=== PATIENT | male | born 1990 | race Caucasian/White ===

== ENCOUNTER 2017-07-14 08:18 | Emergency (ER) | payer OTHER ==
[~2017-07-14] VITALS: Ht 180.3 cm; Wt 103.6 kg
[2017-07-14 08:20] VITALS: TEMP 36.9; Ht 180.3 cm; Wt 103.6 kg
--- NOTE | 2017-07-14 08:49 | DIAGNOSTIC IMAGING REPORT ---
R FOOT MIN 3 VIEWS ROUTINE HISTORY: 26 years-old Male R/O fx right foot, trauma acute right foot pain with history of trauma COMPARISON: None available TECHNIQUE: 3 views of the right foot FINDINGS: Small Achilles enthesophyte about the calcaneus. Accessory ossicle noted adjacent to the medial aspect of the first interphalangeal joint. Minimal dorsal spurring about the midfoot. No acute fracture or dislocation. No opaque foreign body. Mild forefoot soft tissue swelling. IMPRESSION: Mild forefoot soft tissue swelling without fracture. The above report was generated using voice recognition software. It may contain grammatical, syntax or spelling errors. Electronically signed by: Jossue Carbajal M.D. 07/14/2017 8:47 AM Dictated Date/Time: 07/14/2017 8:45 AM
[2017-07-14 09:17] VITALS: BP 125/68; PULSE 51; O2SAT 99
--- NOTE | 2017-07-14 17:09 | EMERGENCY ROOM VISIT NOTE ---
ED Visit Note First contact with patient: 08:29 Chief Complaint: Right foot pain. History of Present Illness: Mr. Vogel is a 26-year-old white male who ambulates into the ED complaining of right foot pain. Patient reports he was at work approximately 1 hour ago when a flip can weighing approximately 1000 pounds landed on his right foot. Since that time he has been having pain over the great toe and second toe of the right foot. He describes this as a throbbing discomfort. He rates his discomfort 6/10. The pain is nonradiating. The pain worsens with palpation of the first metatarsal, the MTP joint and the rest of the great toe and minimal pain over the second MTP joint. His pain worsens with ambulation and flexion and extension of the first MCP and interphalangeal joint. He has not identified any alleviating factors related to the pain. He has not taken any medications for pain prior to arrival at the hospital. He denies any associated ankle pain, other foot pain, other toe pain, foot weakness/numbness/ tingling. Review of Systems: As noted above in history of present illness. Past Medical History: (1) H/O Right wrist fracture (2) Heroin addiction (3) Hypertension Current Medications: Patient denies Allergies to Medications: Patient denies. Social History: Patient is currently employed; he feels safe in his home environment; he denies tobacco and alcohol use. Physical Examination: Vital Signs: Date Time Temp Pulse Resp B/P (MAP) Pulse Ox O2 Delivery O2 Flow Rate FiO2 07/14/17 09:17 51 16 125/68 99 Room Air 07/14/17 08:20 36.9 54 18 164/91 98 Room Air GENERAL: 26-year-old male in mild distress due to pain, nontoxic-appearing, afebrile and hemodynamically stable. NEUROLOGICAL: Awake, alert and oriented to person, place and time. Answering questions appropriately and following commands. SKIN: Warm, dry and pink. Right Foot: Early contusion over the dorsal aspect of the foot primarily over the great toe. No open wounds. RIGHT FOOT: Shows no gross bony deformity. Ecchymosis noted over the great toe as previously noted. There is moderate tenderness starting over the distal first metatarsal and extending into the first MTP joint and throughout the great toe. I do not appreciate any bony deformity or crepitus. Decreased range of motion at the MTP joint and interphalangeal joint due to pain and swelling. Capillary refill was brisk. He was intact to light sensation. No subungual hematoma. There is mild tenderness over the second distal metatarsal and MTP joint but none in the second toe. There is no bruising. Capillary refill was brisk. He is intact to light sensations. No subungual hematoma. ED Course: Patient is assessed as noted above. Patient's medication list was reviewed. Patient was offered pain medication and refused. Right Foot X-Rays: Were read by myself and the radiologist showing no acute fractures or dislocations. Patient was placed in a postop shoe; he was offered nonweightbearing crutches and refused. Patient was educated about today's findings and instructed on his treatment plan ; he verbalizes understanding and agreement with this plan. Clinical Impression: Right foot contusion. Work-related injury. Disposition: Patient discharged home in stable condition; prior to departure he was reassessed and subjectively reported he was feeling better and rated his discomfort 3/10. Plan: Comfort measures were discussed with the patient including alternating ibuprofen and acetaminophen every 3 hours for persistent pain. Ice, elevation and use of postop shoe. Patient was encouraged to follow-up with Workmen's Compensation if no better in 3-4 days. Patient was encouraged return the ED for worsening pain, worsening swelling, toe /foot weakness/numbness/tingling or any new/concerning symptoms.
== END 2017-07-14 09:20 | disposition home or self-care (01) ==
LOC: C.EDB 08:20 → C.EDA 09:20
DX: S90.31XA Contusion of right foot, initial encounter (principal); W22.8XXA Striking against or struck by other objects, initial encounter; Y92.89 Other specified places as the place of occurrence of the external cause; Y99.0 Civilian activity done for income or pay

== ENCOUNTER 2021-06-27 16:24 | Observation (INO) ==
[2021-06-27 16:51] LABS: Basophils # (auto) 0.02 K/uL (0-0.2); Basophils % (auto) 0.2 %; Eosinophils # (auto) 0.29 K/uL (0-0.5); Eosinophils % (auto) 2.6 %; Hematocrit (blood only) 42.1 % (42-52); Hemoglobin 14.6 g/dL (14.0-18.0); Immature Granulocytes # (auto) 0.01 K/uL (0.00-0.02); Immature Granulocytes % (auto) 0.1 %; Lymphocytes # (auto) 2.26 K/uL (1.2-3.4); Lymphocytes % (auto) 20.2 %; Mean Corpuscular Hemoglobin 29.9 pg (25-34); Mean Corpuscular Hgb Conc 34.7 g/dL (32-36); Mean Corpuscular Volume 86.3 fL (80-100); Mean Platelet Volume 10.5 fL (7.4-10.4); Monocytes % (auto) 7.1 %; Neutrophils # (auto) 7.82 K/uL (1.4-6.5); Neutrophils % (auto) 69.8 %; Platelet Count 301 K/uL (130-400); RDW Coefficient of Variation 12.8 % (11.5-14.5); RDW Standard Deviation 40.8 fL (36.4-46.3); Red Blood Count 4.88 M/uL (4.7-6.1)
[2021-06-27 16:53] LABS: Appearance Urine Clear (Clear); Bilirubin Urine Negative (Negative); Blood Urine Negative (Negative); Color Urine Yellow; Glucose Urine UA Negative (Negative); Ketones Urine Negative (Negative); Leukocyte Esterase Urine Negative (Negative); Nitrite Urine Negative (Negative); Protein Urine Negative (Negative); Specific Gravity Urine > 1.045 (1.000-1.030); Urobilinogen Urine Negative (Negative); pH Urine 6.5 (4.5-7.5)
[2021-06-27 17:10] LABS: Albumin Globulin Ratio 1.6 (0.9-2); Albumin Level 5.1 gm/dl (3.4-5.0); BUN Creatinine Ratio 15.5 (10-20); Bilirubin,Total 0.4 mg/dl (0.2-1.0); Creatinine Clr Calc Pharmacy 159.2 ml/min; Est GFR (African American) 137.1 ml/min; Est GFR (Non-African American) 118.3 ml/min; Globulin 3.1 gm/dl (2.5-4.0); Potassium 3.8 mmol/L (3.5-5.1); Total Protein 8.2 gm/dl (6.0-8.3)
--- NOTE | 2021-06-27 19:07 | History & Physical Report ---
Date of Service June 27, 2021 Assessment & Plan (1) Acute appendicitis with localized peritonitis: Plan: 22-year-old gentleman presents with acute appendicitis. He has an elevated white count and right lower quadrant pain. CT scan demonstrate acute appendicitis. I discussed with him the risks and benefits of a laparoscopic, possible open appendectomy. All his questions were answered, he is agreeable to proceed. We will take him to the operating room at the earliest convenience. History of Present Illness Primary Care Provider: Bryon Llamas MD 30-year-old gentleman presents with right lower quadrant pain starting this morning. He states that he had a fever yesterday. He denies nausea and vomiting. The pain has increased throughout the day. Is in his right lower quadrant. He ate lunch. He denies chest pain, shortness of breath. He denies chills or sweats. He denies change in bowel habits. Allergies Allergy/AdvReac Type Severity Reaction Status Date / Time bee venom protein (honey bee) Allergy Severe Anaphylaxis Verified 03/20/19 19:39 Home Medications Medication Instructions Recorded Confirmed Type buprenorphine 8 mg-naloxone 2 mg 1 tab SUBLINGUAL BID 11/29/18 03/20/19 History sublingual tablet epinephrine 0.3 mg/0.3 mL 0.3 mg IM DIRECTED PRN 11/29/18 03/20/19 History injection, auto-injector lisinopril 20 1 tab PO DAILY 11/29/18 03/20/19 History mg-hydrochlorothiazide 12.5 mg tablet bupropion HCl 100 mg tablet 100 mg PO BID 03/20/19 03/20/19 History docusate sodium 100 mg capsule 100 mg PO DAILY 03/20/19 03/20/19 History (Stool Softener) venlafaxine 37.5 mg 37.5 mg PO DAILY 03/20/19 03/20/19 History capsule,extended release 24 hr Past Med/Surg History Medical History (Updated 06/27/21 @ 19:08 by Gianni Thibodeaux MD) Heroin addiction Heroin withdrawal Hypertension Intractable nausea and vomiting Nasal fracture Nasal laceration Surgical History S/P wisdom tooth extraction Family History Mother Hypertension Father Hypertension Denies family history of Ovarian cancer Prostate cancer Myocardial infarction Breast cancer Colorectal cancer Social History Smoking Status: Current every day smoker Age Started Using Tobacco: 15; Age Quit Using Tobacco: 25; Hx Alcohol Use: Yes Hx Substance Use: No Preferred Language: Singaporean Visual Impairment: No Limitations Hearing Ability: Normal marital status: Single Current Living Situation: Parent Current Living Situation Comment: WITH DAD current occupational status: employed current occupation: LABOROR Feels Safe at Home: Yes Childhood Exposure to Second-Hand Smoke: Yes Dental Care, Regularly: No Physical Activity Frequency: Does not Exercise Seatbelt Use: always Sunscreen Use: Yes Review of Systems Review of Systems: All systems reviewed & are unremarkable except as noted in HPI & below Physical Exam Constitutional: WD/WN, vitals as above Neck: trachea midline, no thyromegaly Respiratory: normal respiratory effort; no respiratory distress and no labored breathing Cardiovascular: RRR, no murmur, no edema Gastrointestinal (Abdomen): Inspection/Auscultation: abdomen normal to inspection; abdomen not distended Percussion/Palpation: + abdomen tender (RLQ ) and abdomen soft; no guarding and abdomen not rigid positive Rovsig's sign Musculoskeletal: Extremities: no cyanosis and no clubbing Skin: no rashes, warm and dry Psychiatric: A+Ox3, euthymic affect Results & Data Results & Data ([facility]) Vital Signs (Past 12 Hours) Vital Signs Temp Pulse Pulse Resp BP Pulse Ox 06/27/21 18:26 57 L 18 97 06/27/21 18:10 55 L 16 99 06/27/21 18:00 66 15 132/69 97 06/27/21 17:50 60 18 98 06/27/21 17:40 70 15 98 06/27/21 17:36 69 19 99 06/27/21 16:26 36.1 C L 62 16 142/82 H 100 Laboratory Results 06/27/21 06/27/21 06/27/21 Range/Units 17:25 16:35 16:35 WBC (4.8-10.8) K/uL RBC (4.7-6.1) M/uL Hgb (14.0-18.0) g/dL Hct (42-52) % MCV (80-100) fL MCH (25-34) pg MCHC (32-36) g/dL RDW Std Deviation (36.4-46.3) fL RDW Coeff of Kim (11.5-14.5) % Plt Count (130-400) K/uL MPV (7.4-10.4) fL Immature Gran % (Auto) % Neut % (Auto) % Lymph % (Auto) % Terrell % (Auto) % Eos % (Auto) % Baso % (Auto) % Neut # (Auto) (1.4-6.5) K/uL Lymph # (Auto) (1.2-3.4) K/uL Terrell # (Auto) (0.11-0.59) K/uL Eos # (Auto) (0-0.5) K/uL Baso # (Auto) (0-0.2) K/uL Immature Gran # (Auto) (0.00-0.02) K/uL Sodium 136 (136-145) mmol/L Potassium 3.8 (3.5-5.1) mmol/L Chloride 97 L (98-107) mmol/L Carbon Dioxide 32 (21-32) mmol/L Anion Gap 7 (3-11) BUN 13 (6-23) mg/dl Creatinine 0.84 (0.6-1.4) mg/dl Est Cr Clr Drug Dosing 159.2 ml/min Est GFR ( Amer) 137.1 ml/min Est GFR (Non-Af Amer) 118.3 ml/min BUN/Creatinine Ratio 15.5 (10-20) Glucose 83 (70-99(Fasting)) mg/dl Calcium 10.0 (8.5-10.1) mg/dl Total Bilirubin 0.4 (0.2-1.0) mg/dl AST 19 (13-39) U/L ALT 20 (7-52) U/L Alkaline Phosphatase 64 (34-104) U/L Total Protein 8.2 (6.0-8.3) gm/dl Albumin 5.1 H (3.4-5.0) gm/dl Globulin 3.1 (2.5-4.0) gm/dl Albumin/Globulin Ratio 1.6 (0.9-2) Lipase 32 (11-82) U/L Urine Color Yellow Urine Appearance Clear (Clear) Urine pH 6.5 (4.5-7.5) Ur Specific [place] > 1.045 H (1.000-1.030) Urine Protein Negative (Negative) Urine Glucose (UA) Negative (Negative) Urine Ketones Negative (Negative) Urine Blood Negative (Negative) Urine Nitrite Negative (Negative) Urine Bilirubin Negative (Negative) Urine Urobilinogen Negative (Negative) Ur Leukocyte Esterase Negative (Negative) SARS-CoV-2, RNA, NAAT NEGATIVE (NEGATIVE) 06/27/21 Range/Units 16:35 WBC 11.20 H (4.8-10.8) K/uL RBC 4.88 (4.7-6.1) M/uL Hgb 14.6 (14.0-18.0) g/dL Hct 42.1 (42-52) % MCV 86.3 (80-100) fL MCH 29.9 (25-34) pg MCHC 34.7 (32-36) g/dL RDW Std Deviation 40.8 (36.4-46.3) fL RDW Coeff of Kim 12.8 (11.5-14.5) % Plt Count 301 (130-400) K/uL MPV 10.5 H (7.4-10.4) fL Immature Gran % (Auto) 0.1 % Neut % (Auto) 69.8 % Lymph % (Auto) 20.2 % Terrell % (Auto) 7.1 % Eos % (Auto) 2.6 % Baso % (Auto) 0.2 % Neut # (Auto) 7.82 H (1.4-6.5) K/uL Lymph # (Auto) 2.26 (1.2-3.4) K/uL Terrell # (Auto) 0.80 H (0.11-0.59) K/uL Eos # (Auto) 0.29 (0-0.5) K/uL Baso # (Auto) 0.02 (0-0.2) K/uL Immature Gran # (Auto) 0.01 (0.00-0.02) K/uL Sodium (136-145) mmol/L Potassium (3.5-5.1) mmol/L Chloride (98-107) mmol/L Carbon Dioxide (21-32) mmol/L Anion Gap (3-11) BUN (6-23) mg/dl Creatinine (0.6-1.4) mg/dl Est Cr Clr Drug Dosing ml/min Est GFR ( Amer) ml/min Est GFR (Non-Af Amer) ml/min BUN/Creatinine Ratio (10-20) Glucose (70-99(Fasting)) mg/dl Calcium (8.5-10.1) mg/dl Total Bilirubin (0.2-1.0) mg/dl AST (13-39) U/L ALT (7-52) U/L Alkaline Phosphatase (34-104) U/L Total Protein (6.0-8.3) gm/dl Albumin (3.4-5.0) gm/dl Globulin (2.5-4.0) gm/dl Albumin/Globulin Ratio (0.9-2) Lipase (11-82) U/L Urine Color Urine Appearance (Clear) Urine pH (4.5-7.5) Ur Specific [place] (1.000-1.030) Urine Protein (Negative) Urine Glucose (UA) (Negative) Urine Ketones (Negative) Urine Blood (Negative) Urine Nitrite (Negative) Urine Bilirubin (Negative) Urine Urobilinogen (Negative) Ur Leukocyte Esterase (Negative) SARS-CoV-2, RNA, NAAT (NEGATIVE) Diagnostic Findings CT abd pelvis oral and IV con CLINICAL HISTORY: ABD PAIN RLQ COMPARISON STUDY: 03/20/2019 CT DOSE: 488.82 mGy.cm TECHNIQUE: Standard CT of the Abdomen and Pelvis was performed with IV contrast. A dose lowering technique was utilized adhering to the principles of ALARA. Contrast Volume: Optiray 320, 94 ml. The patient received oral contrast. FINDINGS: Lung base: The lung bases are clear. Abdominal cavity: There is no evidence for abdominal mass, adenopathy or ascites. Liver: There is homogeneous attenuation of the liver parenchyma. There is no evidence for enhancing mass lesion. Spleen: There is homogeneous attenuation of the splenic parenchyma. There is no enhancing mass lesion. Pancreas: There is homogeneous attenuation of the pancreatic parenchyma. There is no evidence for mass lesion or peripancreatic fluid collection. Gall Bladder: The gallbladder is well distended with no evidence for intraluminal calculi, wall thickening or pericholecystic edema. Adrenal glands: The adrenal glands are normal in size and attenuation. There is no evidence for enhancing mass lesion. Kidneys: There is homogeneous attenuation of the renal parenchyma bilaterally. There is no evidence for renal calculus or hydronephrosis. There is no evidence for enhancing mass. Bowel: Compared to the previous examination, there is now mild edematous changes present involving the appendix with very mild periappendiceal inflammatory changes present. There is no evidence for perforation or abscess. The findings are most characteristic of early acute appendicitis. The remaining bowel loops are normally placed within the abdomen and pelvis without evidence for dilatation or obstruction. There is no evidence for mass lesion. There is no evidence for free air. Bladder: The bladder is within normal limits with no evidence for focal mass, calculus or diverticulum. : There is no evidence for pelvic mass or adenopathy. There is no evidence for pelvic ascites. Vasculature: There is no evidence for aneurysmal dilatation of the abdominal aorta. Osseous structures: There is no acute osseous pathology. IMPRESSION: 1. CT findings characteristic of early acute appendicitis without evidence for perforation or abscess. 2. The patient did not wait to get the results of this study.
[2021-06-27] MEDS ORDERED: PIPERACILL/TAZOBAC CONSULT ACTIVE PRN (19:09)
[2021-06-27] MEDS ORDERED: PIPERACILLIN/TAZOBACTAM 3.375 GM in DEXTROSE 5% 100 ML/100 ML BAG IV STA (19:20)
[2021-06-27] MEDS ORDERED: PHENYLEPHRINE 100MCG/ML 5ML SYR IV PRN (19:54)
[2021-06-27] MEDS ORDERED: ePHEDrine sulfate 50 MG/ML AMP IV PRN (19:54)
[2021-06-27] MEDS ORDERED: MEPERIDINE HCL 25 MG/ML CARP/VIAL IV PRN (19:54)
[2021-06-27] MEDS ORDERED: ATROPINE SULFATE 0.1 MG/ML 10ML SYR IV PRN (19:54)
[2021-06-27] MEDS ORDERED: HYDROmorphone INJ 1 MG/ML SYRINGE IV PRN (19:54)
[2021-06-27] MEDS ORDERED: ONDANSETRON INJ 2 MG/ML 2 ML VIAL IV PRN ×2 (19:54→23:45)
[2021-06-27] MEDS ORDERED: LABETALOL HCL IV 5 MG/ML 20ML IV PRN (19:54)
--- NOTE | 2021-06-27 19:56 | Anesthesiology Consultation ---
Date of Service June 27, 2021 Assessment & Plan (1) Encounter for pre-operative examination: Chart Review Chart Review: Acceptable Risk for Surgery and Patient NOT seen in Pre Admission Testing Consults Requested none History Surgery Operation Date: 06/27/21 23:00 Proposed Procedures p Laparoscopic Appendectomy - Gianni Thibodeaux MD Height/Weight Height: 6 ft 1 in Weight: 97 kg Allergies Allergy/AdvReac Type Severity Reaction Status Date / Time bee venom protein (honey bee) Allergy Severe Anaphylaxis Verified 03/20/19 19:39 Medications Home Medications Medication Instructions Recorded Confirmed Last Taken buprenorphine 8 mg-naloxone 2 mg 1 tab SUBLINGUAL BID 11/29/18 03/20/19 Unknown sublingual tablet epinephrine 0.3 mg/0.3 mL 0.3 mg IM DIRECTED PRN 11/29/18 03/20/19 Unknown injection, auto-injector lisinopril 20 1 tab PO DAILY 11/29/18 03/20/19 Unknown mg-hydrochlorothiazide 12.5 mg tablet bupropion HCl 100 mg tablet 100 mg PO BID 03/20/19 03/20/19 Unknown docusate sodium 100 mg capsule 100 mg PO DAILY 03/20/19 03/20/19 Unknown (Stool Softener) venlafaxine 37.5 mg 37.5 mg PO DAILY 03/20/19 03/20/19 Unknown capsule,extended release 24 hr Past Medical History Medical History (Updated 06/27/21 @ 19:56 by Wilber Hilton MD) Heroin addiction Heroin withdrawal Hypertension Intractable nausea and vomiting Nasal fracture Nasal laceration Past Family History Family History Mother Hypertension Father Hypertension Denies family history of Ovarian cancer Prostate cancer Myocardial infarction Breast cancer Colorectal cancer Past Surgical History Surgical History S/P wisdom tooth extraction Social History Smoking Status: Current every day smoker tobacco type: cigarettes Hx Alcohol Use: Yes Hx Substance Use: No Physical Exam Vital Signs Last Vital Signs Temp 36.1 C L 06/27/21 16:26 Pulse 57 L 06/27/21 18:26 Resp 18 06/27/21 18:26 BP 132/69 06/27/21 18:00 Pulse Ox 97 06/27/21 18:26 Testing Laboratory Results 06/27/21 16:35 06/27/21 16:35 Urine Color Yellow 06/27/21 16:35 Urine Appearance Clear (Clear) 06/27/21 16:35 Urine pH 6.5 (4.5-7.5) 06/27/21 16:35 Ur Specific [place] > 1.045 (1.000-1.030) H 06/27/21 16:35 Urine Protein Negative (Negative) 06/27/21 16:35 Urine Glucose (UA) Negative (Negative) 06/27/21 16:35 Urine Ketones Negative (Negative) 06/27/21 16:35 Urine Nitrite Negative (Negative) 06/27/21 16:35 Ur Leukocyte Esterase Negative (Negative) 06/27/21 16:[address] abd pelvis oral and IV con CLINICAL HISTORY: ABD PAIN RLQ COMPARISON STUDY: 03/20/2019 CT DOSE: 488.82 mGy.cm TECHNIQUE: Standard CT of the Abdomen and Pelvis was performed with IV contrast. A dose lowering technique was utilized adhering to the principles of ALARA. Contrast Volume: Optiray 320, 94 ml. The patient received oral contrast. FINDINGS: Lung base: The lung bases are clear. Abdominal cavity: There is no evidence for abdominal mass, adenopathy or ascites. Liver: There is homogeneous attenuation of the liver parenchyma. There is no evidence for enhancing mass lesion. Spleen: There is homogeneous attenuation of the splenic parenchyma. There is no enhancing mass lesion. Pancreas: There is homogeneous attenuation of the pancreatic parenchyma. There is no evidence for mass lesion or peripancreatic fluid collection. Gall Bladder: The gallbladder is well distended with no evidence for intraluminal calculi, wall thickening or pericholecystic edema. Adrenal glands: The adrenal glands are normal in size and attenuation. There is no evidence for enhancing mass lesion. Kidneys: There is homogeneous attenuation of the renal parenchyma bilaterally. There is no evidence for renal calculus or hydronephrosis. There is no evidence for enhancing mass. Bowel: Compared to the previous examination, there is now mild edematous changes present involving the appendix with very mild periappendiceal inflammatory changes present. There is no evidence for perforation or abscess. The findings are most characteristic of early acute appendicitis. The remaining bowel loops are normally placed within the abdomen and pelvis without evidence for dilatation or obstruction. There is no evidence for mass lesion. There is no evidence for free air. Bladder: The bladder is within normal limits with no evidence for focal mass, calculus or diverticulum. : There is no evidence for pelvic mass or adenopathy. There is no evidence for pelvic ascites. Vasculature: There is no evidence for aneurysmal dilatation of the abdominal aorta. Osseous structures: There is no acute osseous pathology. IMPRESSION: 1. CT findings characteristic of early acute appendicitis without evidence for perforation or abscess. 2. The patient did not wait to get the results of this study. The referring clinician will be called with results of this study. ACT 112: Negative or not required by law. Electronically signed by: Leonel Oliveira M.D. 06/27/2021 2:52 PM Dictated:06/27/21 1435
[2021-06-27] MEDS: LACTATED RINGER'S 1,000 ML IV SCH (20:20)
[2021-06-27] MEDS ORDERED: BUPIVACAINE/EPINEPHRINE 0.25% 1:200,000 30 ML VIAL ONE (21:15)
[2021-06-27] MEDS ORDERED: MIDAZOLAM HCL 1 MG/ML 2ML VIAL ONE (21:42)
[2021-06-27] MEDS ORDERED: fentaNYL citrate 100 MCG/2 ML VIAL ONE (21:56)
[2021-06-27] MEDS ORDERED: NEOSTIGMINE METHYLSULFATE 1 MG/ML 10ML VIAL ONE (22:21)
[2021-06-27] MEDS ORDERED: ROCURONIUM BROMIDE 10 MG/ML 5 ML VIAL IV ONE (22:21)
[2021-06-27] MEDS ORDERED: DEXAMETHASONE SOD INJ 4 MG/ML VIAL ONE (22:21)
[2021-06-27] MEDS ORDERED: GLYCOPYRROLATE 0.2 MG/ML VIAL ONE (22:21)
[2021-06-27] MEDS ORDERED: ONDANSETRON INJ 2 MG/ML 2 ML VIAL ONE (22:21)
[2021-06-27] MEDS ORDERED: LIDOCAINE 2% 2 ML VIAL/AMP(20MG/ML) INFIL ONE (22:23)
[2021-06-27] MEDS ORDERED: PROPOFOL IV EMULSION 10 MG/ML 20 ML VIAL IV ONE (22:23)
--- NOTE | 2021-06-27 22:30 | Anesthesiology Progress Note ---
Date of Service June 27, 2021 Anesthesia Post Procedure Vital Signs Vital Signs: Temp Pulse Pulse Resp BP BP Pulse Ox 06/27/21 20:00 57 L 17 126/51 L 94 06/27/21 18:26 57 L 18 97 06/27/21 18:10 55 L 16 99 06/27/21 18:00 66 15 132/69 97 06/27/21 17:50 60 18 98 06/27/21 17:40 70 15 98 06/27/21 17:36 69 19 99 06/27/21 16:26 36.1 C L 62 16 142/82 H 100 Pain Intensity Abdomen: Pain Intensity: 2 Transfer of Care Handoff Completed per policy Notes Mental Status: alert / awake / arousable Patient Amnestic to Procedure: Yes Nausea / Vomiting: adequately controlled Pain: adequately controlled Airway Patency, RR, SpO2: stable & adequate BP & HR: stable & adequate Hydration State: stable & adequate Anesthetic Complications: no major complications apparent and Pt Satisfied with anesthetic care Notes: The patient has a history of esophageal cancer with a noted hiatal hernia on imaging. The patient had a RSI. He was easily intubated but was noted to have phlegm and then multiple chunks of food in a "pouch" near his esophagus. Multiple chunks of food were removed with forceps. The procedure continued uneventfully. At the end of the surgery the patient was again noted to have multiple chunks of food that were suctioned. The patient was awake and breathing spontaneously prior to extubation. He did not appear to aspirate during the procedure. He has been awake and stable in PACU with SpO2 in the mid to high 90s. His lung sound are similar to his baseline upon ausculation.
[2021-06-27] MEDS ORDERED: KETOROLAC 30 MG/ML VIAL ONE ×2 (22:35→22:37)
--- NOTE | 2021-06-27 22:41 | Post Operative Brief Note ---
Immediate Post Op Note v1 Date of Surgery June 27, 2021 Pre & Post Diagnosis Operation Date: 06/27/21 23:00 Pre-Op Diagnosis: Acute appendicitis with localized peritonitis Post-Op Diagnosis: Acute appendicitis with localized peritonitis I identified the patient and participated in the time-out.: Yes Procedure Operation Date: 06/27/21 23:00 Actual Procedures p Laparoscopic Appendectomy - Gianni Thibodeaux MD Surgeon Gianni Thibodeaux MD Math Instructor none Estimated Blood Loss 5 Findings Consistent with Post-Op Diagnosis acute appendicitis
--- NOTE | 2021-06-27 22:42 | Operative Report ---
Post Operative Report Pre & Post Diagnosis Operation Date: 06/27/21 23:00 Pre-Op Diagnosis: Acute appendicitis with localized peritonitis Post-Op Diagnosis: Acute appendicitis with localized peritonitis I identified the patient and participated in the time-out.: Yes Procedure Operation Date: 06/27/21 23:00 Actual Procedures p Laparoscopic Appendectomy - Gianni Thibodeaux MD Surgeon Gianni Thibodeaux MD Professor Of Business Administration none Estimated Blood Loss 5 Findings Consistent with Post-Op Diagnosis Acute appendicitis Specimens Appendix Anesthesia Type General Complications No immediate complications Description of Procedure The patient was taken to the operating room, and placed supine on the operating table. A timeout was performed, perioperative antibiotics were administered, SCD boots were placed. After adequate anesthesia and analgesia was obtained, the abdomen was prepped and draped in the normal sterile fashion. A 1 cm incision was made in the supraumbilical region and carried down to the level of the fascia. A trach hook was used to grasp the fascia and elevated and a varies needle was used to enter the abdominal cavity. The abdomen was insufflated to a pressure of 15 mmHg, and a 5 mm trocar was placed in this location. A 5 mm 30 degree laparoscope was placed into the abdominal cavity, and the abdomen was surveyed. The patient was placed in Trendelenburg and slightly to the left. One 5 mm trocar was placed in the right upper quadrant, and one 12 mm trocar was placed in the left lower quadrant under direct visualization. The right colon was identified and traced down to the cecum. The appendix was identified and elevated anteriorly and medially. A window was created at the base of the appendix with a [place] dissector. The Endo CIERRA stapler was used to transect the appendix at its base through noninflam ed tissue, and subsequently the mesoappendix. The appendix was placed in an Endo Catch bag, and removed via the left lower quadrant port site. Attention was turned to hemostasis, which was excellent. The abdomen was copiously irrigated and suctioned free, and again hemostasis was found to be excellent. All trochars removed under direct visualization. The abdomen was desufflated. The fascia in the 12 mm port site was closed with a 0 Vicryl suture. The skin was closed with a running 4-0 Monocryl subcuticular stitch. Dermabond was applied. The patient tolerated the procedure without complication, and was transferred in stable condition to the PACU. All instrument, needle, and sponge counts were correct at the end of the case. I attest to the content of the Intraoperative Record and any orders documented therein. Any exceptions are noted below.
[2021-06-27] MEDS: fentaNYL citrate 100 MCG/2 ML VIAL IV PRN ×3 (23:10→23:20)
--- NOTE | 2021-06-27 23:10 | Emergency Department Note ---
History of Present Illness General Chief complaint: Abdominal Pain Stated complaint: APPENDIX PROBLEMS, REF BY DOC Time Seen by Provider: 06/27/21 16:38 Source: patient Mode of arrival: ambulatory Limitations: no limitations History of Present Illness Maximum Pain Intensity: 5 This patient is a 30-year-old male who presents to the emergency department for evaluation of abdominal pain and appendicitis. He states that he has had some intermittent abdominal pain for the past few days which has been constant since this morning. Pain is in the right lower abdomen. He denies associated nausea/vomiting, anorexia or fevers. He rates his pain a 5/10. He saw his primary care provider as an outpatient and had a CT scan which showed appendicitis. He was sent here for further care. Home Medications Medication Instructions Recorded Confirmed Type buprenorphine 8 mg-naloxone 2 mg 1 tab SUBLINGUAL BID 11/29/18 06/27/21 History sublingual tablet lisinopril 20 mg tablet 20 mg PO DAILY 06/27/21 06/27/21 History Allergies Allergy/AdvReac Type Severity Reaction Status Date / Time bee venom protein (honey bee) Allergy Severe Anaphylaxis Verified 06/27/21 20:29 Past Med/Surg History Medical History Chews tobacco regularly Heroin addiction Heroin withdrawal Hypertension Nasal fracture Surgical History S/P wisdom tooth extraction Family History Mother Hypertension Father Hypertension Denies family history of Ovarian cancer Prostate cancer Myocardial infarction Breast cancer Colorectal cancer Social History Smoking Status: Current every day smoker Age Started Using Tobacco: 15; Age Quit Using Tobacco: 25; Second Hand Exposure: Yes; Do You Dip or Chew Tobacco: Yes; Tobacco Cessation Education Requested by Patient: Yes Hx Alcohol Use: Yes Alcohol type: beer Hx Substance Use: Yes Last Used Substance: Unknown Last Used Substance Other:: 7-8 years Preferred Language: French Communication Ability: Effective Visual Impairment: No Limitations Hearing Ability: Normal Booth Supervisor Required: No Beliefs That Will Affect Care: None marital status: Single Current Living Situation: Family Current Living Situation Comment: WITH DAD current occupational status: employed current occupation: LABOROR Other Information That Helps Us Care for You: No Feels Safe at Home: Yes Safety Concerns: Feels Safe At This Time Childhood Exposure to Second-Hand Smoke: Yes Dental Care, Regularly: No Physical Activity Frequency: Does not Exercise Seatbelt Use: always Sunscreen Use: Yes Assistive Devices: None Review of Systems A total of 10 systems reviewed and were otherwise negative Physical Exam Vital Signs Vital Signs - 24 hr 06/27/21 16:26 06/27/21 17:36 06/27/21 17:40 Temperature 36.1 C L Temperature Source Temporal Artery Scan Pulse Rate 62 69 70 Pulse Rate [Right Finger] Pulse Rate from SpO2 Sensor 68 65 Pulse Rhythm Regular Pulse Rhythm [Right Finger] Pulse Strength Normal Pulse Strength [Right Finger] Respiratory Rate 16 19 15 Respiratory Effort / Characteristics Non-Labored Respiratory Depth Normal Blood Pressure 142/82 H Blood Pressure [Right Arm] Blood Pressure Mean 102 Blood Pressure Mean [Right Arm] Blood Pressure Position [Right Arm] Pulse Oximetry 100 99 98 Oxygen Delivery Method Room Air Sepsis Recent Fever Within 48 Hours No Sepsis New/Unexplained Change in Mental Status No Sepsis Action Taken by Nursing No Action Required 06/27/21 17:50 06/27/21 18:00 06/27/21 18:10 Temperature Temperature Source Pulse Rate 60 66 55 L Pulse Rate [Right Finger] Pulse Rate from SpO2 Sensor 61 63 56 L Pulse Rhythm Pulse Rhythm [Right Finger] Pulse Strength Pulse Strength [Right Finger] Respiratory Rate 18 15 16 Respiratory Effort / Characteristics Respiratory Depth Blood Pressure 132/69 Blood Pressure [Right Arm] Blood Pressure Mean 90 Blood Pressure Mean [Right Arm] Blood Pressure Position [Right Arm] Pulse Oximetry 98 97 99 Oxygen Delivery Method Sepsis Recent Fever Within 48 Hours Sepsis New/Unexplained Change in Mental Status Sepsis Action Taken by Nursing 06/27/21 18:26 06/27/21 20:00 Temperature Temperature Source Pulse Rate Pulse Rate [Right Finger] 57 L 57 L Pulse Rate from SpO2 Sensor Pulse Rhythm Pulse Rhythm [Right Finger] Regular Regular Pulse Strength Pulse Strength [Right Finger] Normal Normal Respiratory Rate 18 17 Respiratory Effort / Characteristics Non-Labored Spontaneous Non-Labored Spontaneous Respiratory Depth Normal Normal Blood Pressure Blood Pressure [Right Arm] 126/51 L Blood Pressure Mean Blood Pressure Mean [Right Arm] 76 Blood Pressure Position [Right Arm] Lying Pulse Oximetry 97 94 Oxygen Delivery Method Room Air Room Air Sepsis Recent Fever Within 48 Hours Sepsis New/Unexplained Change in Mental Status Sepsis Action Taken by Nursing VITALS: Vitals are noted on the nurse's note and reviewed by myself. GENERAL: This is a 30-year-old male, in no acute distress, well-developed well- nourished. SKIN: The skin was without rashes. EARS: External auditory canals clear, tympanic membranes pearly jj without erythema or effusion bilaterally. EYES: Pupils equal round and reactive to light and accommodation. MOUTH: Mucous membranes moist. NECK: Supple without nuchal rigidity. HEART: Regular rate and rhythm without murmurs gallops or rubs. LUNGS: Clear to auscultation bilaterally without wheezes, rales or rhonchi. ABDOMEN: Positive bowel sounds x 4. Soft, moderate tenderness to palpation in the right lower quadrant without guarding or rebound tenderness. NEURO: Patient was alert and oriented to person place and time. Course Administered Medications Enoxaparin Sodium (Enoxaparin Inj 40 Mg/0.4 Ml Syr) 40 mg SQ Q24H [facility] Stop: 07/28/21 07:59 Last Admin: 06/28/21 08:59 Dose: 40 mg Documented by: [id number] Lactated Ringer's (Lr) 1,000 mls @ 100 mls/hr IV .Q10H [facility] Stop: 07/27/21 19:14 Last Admin: 06/28/21 02:28 Dose: 100 mls/hr Documented by: [id number] Infusion: 06/28/21 02:28 Dose: 100 mls/hr Documented by: [id number] Admin: 06/27/21 20:20 Dose: 100 mls/hr Documented by: [id number] Piperacillin Sod/Tazobactam (Sod 3.375 gm/ Dextrose) 115 mls @ 28.75 mls/hr IV Q8H [facility]; Protocol Stop: 07/08/21 00:00 Last Admin: 06/28/21 09:27 Dose: 28.8 mls/hr Documented by: [id number] Infusion: 06/28/21 05:05 Dose: 0 mls/hr Documented by: [id number] Admin: 06/28/21 01:04 Dose: 28.8 mls/hr Documented by: [id number] Morphine Sulfate (Morphine Sulfate 4 Mg/Ml 1 Ml Carp\Vial) 4 mg IV Q3H PRN PRN Reason: Pain (6,7,8,9,10) Stop: 07/11/21 23:44 Last Admin: 06/28/21 00:27 Dose: 4 mg Documented by: [id number] Oxycodone/Acetaminophen (Oxycodone/Acetaminophen 5mg/325mg Tab) 1 tab PO Q4H TN N PRN Reason: MODERATE Pain (4,5,6) & Pre PT Stop: 07/11/21 23:44 Last Admin: 06/28/21 06:12 Dose: 1 tab Documented by: [id number] Discontinued Medications Bupivacaine HCl/Epinephrine Bitart (Bupivacaine/Epinephrine 0.25% 1:200,000 30 Ml Vial) Confirm Administered Dose 30 ml .ROUTE .STK-MED ONE Stop: 06/27/21 21:16 Last Admin: 06/27/21 22:36 Dose: 24 ml Documented by: [id number] Fentanyl Citrate (Fentanyl Citrate 100 Mcg/2 Ml Vial) 25 mcg IV Q5M PRN PRN Reason: PACU Use Only-Pain Stop: 06/28/21 03:54 Last Admin: 06/27/21 23:20 Dose: 25 mcg Documented by: [id number] Admin: 06/27/21 23:15 Dose: 25 mcg Documented by: [id number] Admin: 06/27/21 23:10 Dose: 25 mcg Documented by: [id number] Piperacillin Sod/Tazobactam (Sod 3.375 gm/ Dextrose) 100 ml in 115 mls @ 230 mls/hr IV NOW STA Stop: 06/27/21 19:49 Last Infusion: 06/27/21 20:12 Dose: 0 mls/hr Documented by: [id number] Admin: 06/27/21 19:50 Dose: 230 mls/hr Documented by: [id number] Medical Decision Making Differential Diagnosis Appendicitis, testicular torsion, infections, diverticulitis, UTI, obstruction, mesenteric ischemia, aortic pathology, inflammatory bowel disease, renal colic, PUD, pancreatitis, biliary pathology, hernia, volvulus, constipation, as well as other pathologies. Home Medications Current Medication List: was personally reviewed by me Laboratory Data Attestation: I reviewed the patient's lab results. Result diagrams: 06/27/21 16:35 06/27/21 16:35 Lab Results 06/27/21 06/27/21 06/27/21 Range/Units 16:35 16:35 16:35 WBC 11.20 H (4.8-10.8) K/uL RBC 4.88 (4.7-6.1) M/uL Hgb 14.6 (14.0-18.0) g/dL Hct 42.1 (42-52) % MCV 86.3 (80-100) fL MCH 29.9 (25-34) pg MCHC 34.7 (32-36) g/dL RDW Std Deviation 40.8 (36.4-46.3) fL RDW Coeff of Kim 12.8 (11.5-14.5) % Plt Count 301 (130-400) K/uL MPV 10.5 H (7.4-10.4) fL Immature Gran % (Auto) 0.1 % Neut % (Auto) 69.8 % Lymph % (Auto) 20.2 % [place] % (Auto) 7.1 % Eos % (Auto) 2.6 % Baso % (Auto) 0.2 % Neut # (Auto) 7.82 H (1.4-6.5) K/uL Lymph # (Auto) 2.26 (1.2-3.4) K/uL [place] # (Auto) 0.80 H (0.11-0.59) K/uL Eos # (Auto) 0.29 (0-0.5) K/uL Baso # (Auto) 0.02 (0-0.2) K/uL Immature Gran # (Auto) 0.01 (0.00-0.02) K/uL Sodium 136 (136-145) mmol/L Potassium 3.8 (3.5-5.1) mmol/L Chloride 97 L (98-107) mmol/L Carbon Dioxide 32 (21-32) mmol/L Anion Gap 7 (3-11) BUN 13 (6-23) mg/dl Creatinine 0.84 (0.6-1.4) mg/dl Est Cr Clr Drug Dosing 159.2 ml/min Est GFR ( Amer) 137.1 ml/min Est GFR (Non-Af Amer) 118.3 ml/min BUN/Creatinine Ratio 15.5 (10-20) Glucose 83 (70-99(Fasting)) mg/dl Calcium 10.0 (8.5-10.1) mg/dl Total Bilirubin 0.4 (0.2-1.0) mg/dl AST 19 (13-39) U/L ALT 20 (7-52) U/L Alkaline Phosphatase 64 (34-104) U/L Total Protein 8.2 (6.0-8.3) gm/dl Albumin 5.1 H (3.4-5.0) gm/dl Globulin 3.1 (2.5-4.0) gm/dl Albumin/Globulin Ratio 1.6 (0.9-2) Lipase 32 (11-82) U/L Urine Color Yellow Urine Appearance Clear (Clear) Urine pH 6.5 (4.5-7.5) Ur Specific [place] > 1.045 H (1.000-1.030) Urine Protein Negative (Negative) Urine Glucose (UA) Negative (Negative) Urine Ketones Negative (Negative) Urine Blood Negative (Negative) Urine Nitrite Negative (Negative) Urine Bilirubin Negative (Negative) Urine Urobilinogen Negative (Negative) Ur Leukocyte Esterase Negative (Negative) SARS-CoV-2, RNA, NAAT (NEGATIVE) 06/27/21 Range/Units 17:25 WBC (4.8-10.8) K/uL RBC (4.7-6.1) M/uL Hgb (14.0-18.0) g/dL Hct (42-52) % MCV (80-100) fL MCH (25-34) pg MCHC (32-36) g/dL RDW Std Deviation (36.4-46.3) fL RDW Coeff of Kim (11.5-14.5) % Plt Count (130-400) K/uL MPV (7.4-10.4) fL Immature Gran % (Auto) % Neut % (Auto) % Lymph % (Auto) % [place] % (Auto) % Eos % (Auto) % Baso % (Auto) % Neut # (Auto) (1.4-6.5) K/uL Lymph # (Auto) (1.2-3.4) K/uL [place] # (Auto) (0.11-0.59) K/uL Eos # (Auto) (0-0.5) K/uL Baso # (Auto) (0-0.2) K/uL Immature Gran # (Auto) (0.00-0.02) K/uL Sodium (136-145) mmol/L Potassium (3.5-5.1) mmol/L Chloride (98-107) mmol/L Carbon Dioxide (21-32) mmol/L Anion Gap (3-11) BUN (6-23) mg/dl Creatinine (0.6-1.4) mg/dl Est Cr Clr Drug Dosing ml/min Est GFR ( Amer) ml/min Est GFR (Non-Af Amer) ml/min BUN/Creatinine Ratio (10-20) Glucose (70-99(Fasting)) mg/dl Calcium (8.5-10.1) mg/dl Total Bilirubin (0.2-1.0) mg/dl AST (13-39) U/L ALT (7-52) U/L Alkaline Phosphatase (34-104) U/L Total Protein (6.0-8.3) gm/dl Albumin (3.4-5.0) gm/dl Globulin (2.5-4.0) gm/dl Albumin/Globulin Ratio (0.9-2) Lipase (11-82) U/L Urine Color Urine Appearance (Clear) Urine pH (4.5-7.5) Ur Specific [place] (1.000-1.030) Urine Protein (Negative) Urine Glucose (UA) (Negative) Urine Ketones (Negative) Urine Blood (Negative) Urine Nitrite (Negative) Urine Bilirubin (Negative) Urine Urobilinogen (Negative) Ur Leukocyte Esterase (Negative) SARS-CoV-2, RNA, NAAT NEGATIVE (NEGATIVE) MDM Narrative This patient is a 30-year-old male who presents to the emergency department for evaluation of appendicitis. He had an outpatient CT scan performed at this [facility] which showed appendicitis. Patient was evaluated and labs were ordered. General surgery, Dr. Thibodeaux was consulted and agreed to take the patient to the OR for operative management. Impression & Plan Acute appendicitis with localized peritonitis Discharge Plan Visit Data Chief Complaint: Abdominal Pain Stated Complaint: APPENDIX PROBLEMS, REF BY DOC ED Provider: Nelson Bruno ED Midlevel Provider: Madhavi Valdivia Discharge Problem: Acute appendicitis with localized peritonitis Patient Disposition: Admitted As Inpatient Discharge Instructions Interventions: ED Discharge Assessment Last Done: 06/27/21 21:26 Discharge Problem: Acute appendicitis with localized peritonitis Qualifiers: Appendicitis gangrene presence: unspecified whether gangrene present Appendicitis perforation presence: unspecified whether perforation present Appendicitis abscess presence: unspecified whether abscess present Qualified Code(s): K35.30 - Acute appendicitis with localized peritonitis, without perforation or gangrene
--- NOTE | 2021-06-27 23:26 | Anesthesiology Progress Note ---
Date of Service June 27, 2021 Anesthesia Post Procedure Vital Signs Vital Signs: Temp Pulse Pulse Pulse Resp BP BP 06/27/21 23:20 51 L 15 146/69 H 06/27/21 23:15 51 L 14 152/90 H 06/27/21 23:05 52 L 19 170/86 H 06/27/21 22:57 36 C L 56 L 21 178/83 H 06/27/21 20:00 57 L 17 126/51 L 06/27/21 18:26 57 L 18 06/27/21 18:10 55 L 16 06/27/21 18:00 66 15 132/69 06/27/21 17:50 60 18 06/27/21 17:40 70 15 06/27/21 17:36 69 19 06/27/21 16:26 36.1 C L 62 16 142/82 H Pulse Ox 06/27/21 23:20 97 06/27/21 23:15 100 06/27/21 23:05 100 06/27/21 22:57 100 06/27/21 20:00 94 06/27/21 18:26 97 06/27/21 18:10 99 06/27/21 18:00 97 06/27/21 17:50 98 06/27/21 17:40 98 06/27/21 17:36 99 06/27/21 16:26 100 Pain Intensity Abdomen: Pain Intensity: 2 Transfer of Care Handoff Completed per policy Notes Mental Status: alert / awake / arousable Patient Amnestic to Procedure: Yes Nausea / Vomiting: adequately controlled Pain: adequately controlled Airway Patency, RR, SpO2: stable & adequate BP & HR: stable & adequate Hydration State: stable & adequate Anesthetic Complications: no major complications apparent and Pt Satisfied with anesthetic care
[2021-06-27] MEDS ORDERED: PROMETHAZINE HCL 12.5 MG in SODIUM CHLORIDE 0.9% 50 ML IV PRN (23:45)
[2021-06-27] MEDS ORDERED: MoRPHine SULFATE 4 MG/ML 1 ML CARP\\VIAL IV PRN (23:45)
[2021-06-27] MEDS ORDERED: MoRPHine SULFATE 2 MG/ML CARP IV PRN (23:45)
[2021-06-27] MEDS ORDERED: diphenhydrAMINE Capsule 25 MG CAP PO PRN (23:45)
[2021-06-28] MEDS: PIPERACILLIN/TAZOBACTAM 3.375 GM in DEXTROSE 5% 100 ML IV SCH ×2 (01:04→09:27)
[2021-06-28] MEDS: LACTATED RINGER'S 1,000 ML IV SCH (02:28)
[2021-06-28] MEDS: oxyCODONE/ACETAMINOPHEN 5mg/325mg TAB PO PRN ×2 (06:12→11:38)
[2021-06-28] MEDS ORDERED: ENOXAPARIN INJ 40 MG/0.4 ML SYR SQ SCH (08:00)
[2021-06-28] MEDS ORDERED: ACETAMINOPHEN 325 MG TAB PO PRN (08:00)
--- NOTE | 2021-06-28 09:46 | Discharge Summary ---
Date of Service June 28, 2021 Admission HPI Per Admitting Provider 30-year-old gentleman presents with right lower quadrant pain starting this morning. He states that he had a fever yesterday. He denies nausea and vomiting. The pain has increased throughout the day. Is in his right lower quadrant. He ate lunch. He denies chest pain, shortness of breath. He denies chills or sweats. He denies change in bowel habits. Principal Diagnosis Acute appendicitis Discharge Exam Constitutional WD/WN, vitals as above no acute distress and not ill appearing Neck normal visual inspection and trachea midline Respiratory normal respiratory effort; no respiratory distress Gastrointestinal (Abdomen) Inspection/Auscultation: abdomen normal to inspection and + abdominal surgical incision (clean, dry,intact with dermabond present); abdomen not distended Percussion/Palpation: + abdomen tender (at incision sites) and abdomen soft; no guarding and abdomen not rigid Skin no rashes, warm and dry Psychiatric Orientation: alert and oriented x 3 Discharge Data Allergies Allergy/AdvReac Type Severity Reaction Status Date / Time bee venom protein (honey bee) Allergy Severe Anaphylaxis Verified 06/27/21 20:29 Consultations 06/27/21 17:42 Consult General Surgery Stat Procedures Performed Operation Date: 06/27/21 23:00 Actual Procedures p Laparoscopic Appendectomy - Gianni Thibodeaux MD Hospital Course (1) Acute appendicitis with localized peritonitis: Patient was taken to the operating room for laparoscopic appendectomy by Dr. Thibodeaux. Patient was found to have acute appendicitis without perforation or abscess. Patient tolerated procedure well and was transferred to recovery then to medical/surgical floor for postop care. His diet was advanced to regular diet, activity as tolerated, p.o. Percocet as needed for pain. Patient was evaluated on postop day #1 and doing well. Afebrile, vital signs stable, pain moderate but controlled, tolerating regular diet, no nausea no vomiting, urinating without difficulty. Patient was discharged home on postop day #1 in stable condition. He is to continue his regular Suboxone for postop pain management and advised to reach out to his doctor who manages his Suboxone for any questions. Total Time Total Time Spent Total Time Spent (In Minutes): 30 minutes Total Time Includes: Examination of the Patient, Discharge Planning and Medication Reconciliation Discharge Plan Discharge Items Patient Disposition: Home - Self-Care Reason For Visit: APPENDICITIS Discharge Diagnosis: Appendicitis Activity: Per Instructions section Lifting: No more than 25 pounds Sexual Activity: Wait until after follow-up appointment Exercise/Sports: Wait until after follow-up appointment Non-emergency contact: Surgeon Call non-emergency contact if: you have any medication questions, your symptoms worsen, your pain is not controlled, your pain is worsening, your pain is unusual for you, your pain is concerning for you, your temperature is above 101.5, your wound has increased redness, your wound has increased drainage and your wound pain has increased Follow-up/Referrals: Bryon Llamas MD [Primary Care Provider] - Diet: Regular Addtl Attending Provider Instructions: Post-Surgical ~Discharge Instructions Activity Recommendations: - lifting limitation: (20 pounds for 2 weeks), - exercise/sex/sports limit: (nonstrenuous for 2 weeks), - driving or machine use limit: (none for 1 week or until pain free), - Shower/bathe limit: (may shower beginning tonight) Diet: - Resume previous diet SPECIAL CARE INSTRUCTIONS: - May shower tonight. Let water run over area and pat dry. Do not submerge incisions underwater for 2 weeks - Leave Dermabond in place. Do NOT pick at this as it can cause infection. - Call the surgeon's office with any questions or concerns - - (ex. temperature higher than 101 degrees F, excessive bleeding or pain). MEDICATIONS: - Resume previous medications unless instructed otherwise by your surgeon. - May alternate extra strength Tylenol and Ibuprofen as needed for mild to moderate pain -650 mg Tylenol every 6 hours as needed - Ibuprofen 600 mg every 6 hours as needed (take with food) - May continue your Suboxone as needed for pain management FOLLOW UP VISIT: - If not already scheduled, please call the office to schedule a two week follow-up appointment. Office number Pending Studies at Discharge: No Stand-Alone Forms: My [facility] Medications and DC Order Prescriptions: Continued buprenorphine-naloxone 8-2 mg tablet, sublingual 1 tab sublingual BID RF: 0 lisinopril 20 mg tablet 20 mg PO DAILY RF: 0 Discharge Orders: Discharge Order (Routine); Ordered 06/28/21 Ordered By: Sheyla Sampson Admission Data Admit Date/Time: 06/27/21 22:46 Attending Provider: Gianni Thibodeaux Admit Provider: Gianni Thibodeaux Primary Care Provider: Bryon Llamas Other Providers: Gianni Thibodeaux
== END 2021-06-28 13:39 | disposition home or self-care (01) ==
LOC: ED 16:24 → OR 21:26 → 3N 21:26